=== PATIENT | male | born 1980 | race Caucasian/White ===

== ENCOUNTER → 2017-08-02 | Day surgery (SDC) | payer OTHER ==
[~2017-08-02] VITALS: Ht 188 cm; Wt 78.0 kg
[~2017-08-02] MED LIST: 0.9% Sodium Chloride 1,000 ML IV SCH; OMEP40CA36 PO; Sodium Chloride LOK Flush 10 mL Syringe IV PRN; fentaNYL-PF 50 mCg/mL 2 mL Inj IVPUSH PRN
[2017-08-02 08:59] VITALS: BP 133/82; PULSE 91; RESP 14; O2SAT 100
[2017-08-02 10:01] VITALS: BP 113/77; PULSE 88; RESP 14; O2SAT 98
[2017-08-02 10:20] VITALS: BP 128/79; PULSE 93; RESP 14; O2SAT 100
[2017-08-02 10:24] VITALS: BP 127/82; PULSE 89; RESP 14; O2SAT 100
--- NOTE | 2017-08-02 10:59 | ENDO ---
[address] [address] ENDOSCOPY PROCEDURE PATIENT: JOI OLIVERA : 1980 MR#: [id number] ADMIT: 08/02/2017 JOB ID: [id number] PROCEDURE: Esophagogastroduodenoscopy. INDICATION: Vomiting without nausea. ASA CLASSIFICATION: 1. MALLAMPATI SCORE: 2. MEDICATIONS: Versed 5 mg, fentanyl 100 mcg. INSTRUMENT USED: [id number]-J. PROCEDURE DETAILS: After informed consent was obtained, the patient was brought into the GI suite, where he was placed on oxygen via nasal cannula and monitored with continuous pulse oximeter, telemetry, and blood pressure monitoring. A time-out was performed. Then, he was placed in a left lateral decubitus position and medications were administered for sedation. A bite block was placed. The standard EGD scope was inserted through the bite block and advanced to the proximal gastric body. Beyond this, I was unable to advance the scope as there was a large amount of liquid and solid food in the stomach. The scope was then withdrawn and the procedure was terminated. FINDINGS: 1. Food and liquid in the stomach. 2. In the distal esophagus, there was some mild erythema with ulceration suggestive of esophagitis. The remainder of esophagus otherwise unremarkable. IMPRESSION: Food and liquid in the stomach. Suspect possible gastric outlet obstruction. Will have the patient be on a liquid diet for two days and then we will plan to repeat EGD. COMPLICATIONS: None. ESTIMATED BLOOD LOSS: 0. CC: Katie Manning MD
== END | disposition home or self-care (01) ==
LOC: END 00:43
PROVIDERS: ATTEND Internal Medicine Gastroenterology
DX: R11.11 Vomiting without nausea (principal); K21.9 Gastro-esophageal reflux disease without esophagitis; R63.4 Abnormal weight loss
CPT/HCPCS: 43235; G0500; J2250; J3010; J7030